=== PATIENT | male | born 1955 | race Caucasian/White ===

== ENCOUNTER → 2016-08-02 12:25 | Outpatient (CLI) | payer MEDICARE ==
[2011-10-31 09:04] VITALS: BMI 21.4
== END | disposition home or self-care (01) ==
LOC: D.LABREF 12:25
DX: L89.891 Pressure ulcer of other site, stage 1 (principal)

== ENCOUNTER → 2017-10-04 14:58 | Outpatient (CLI) | payer MEDICARE ==
[2011-10-31 09:04] VITALS: BMI 21.4
== END | disposition home or self-care (01) ==
LOC: D.CT 14:58
DX: R10.9 Unspecified abdominal pain (principal)

== ENCOUNTER → 2018-02-12 08:26 | Outpatient (CLI) | payer MEDICARE ==
[2011-10-31 09:04] VITALS: BMI 21.4
== END | disposition home or self-care (01) ==
LOC: D.US 01-30 13:00
DX: N18.4 Chronic kidney disease, stage 4 (severe) (principal); E11.9 Type 2 diabetes mellitus without complications; Z68.21 Body mass index [BMI] 21.0-21.9, adult

== ENCOUNTER 2018-02-19 17:33 | Emergency (ER) | payer MEDICARE ==
[~2018-02-19] VITALS: Ht 195.6 cm; Wt 80.9 kg
[2018-02-19 17:49] VITALS: Ht 195.6 cm; Wt 80.9 kg
[2018-02-19 20:16] VITALS: BP 172/94
== END 2018-02-19 19:41 | disposition home or self-care (01) ==
LOC: D.ER 17:33
DX: R33.9 Retention of urine, unspecified (principal); N13.9 Obstructive and reflux uropathy, unspecified; N28.9 Disorder of kidney and ureter, unspecified; E11.9 Type 2 diabetes mellitus without complications

== ENCOUNTER 2018-03-25 06:13 | Day surgery (SDC) | payer MEDICARE ==
[2018-03-24 08:24] LABS: ANION GAP 12.4 mmol/L (8-16); CALCIUM 8.5 mg/dL (8.5-10.1); CARBON DIOXIDE 25.2 mmol/L (21.0-32.0); CREATININE - SERUM 2.5 mg/dL (0.6-1.3); POTASSIUM - SERUM 4.6 mmol/L (3.5-5.1)
[2018-03-24 08:50] LABS: HEMATOCRIT 37.3 % (42.0-54.0); MCH 28.3 pg (26.0-34.0); MCHC 32.2 g/dL (31.0-37.0); RBC 4.24 10x6/uL (4.20-6.10); RDW 15.6 % (11.5-14.5); WBC 7.4 10x3/uL (4.8-10.8)
[~2018-03-25] VITALS: Ht 195.6 cm; Wt 79.4 kg
--- NOTE | ~2018-03-25 | OP ---
PATIENT NAME: JAKUB MIGUEL MEDICAL RECORD: [id number] :53 LOCATION:[facility] ADMISSION DATE: SURGEON: GIORGIO PARIKH MD DATE OF OPERATION: 03/25/2018 SURGEON: Giorgio Parikh MD ANESTHESIA: General anesthesia by Neelima Matt CRNA. DIAGNOSIS: Obstructive BPH causing urinary retention. PROCEDURES: Cystoscopy, implantation of UroLift devices times 4, insertion of Hein catheter. FINDINGS: Obstructive bilateral lateral lobes. Heavily trabeculated bladder with single ureteral orifices bilaterally. No bladder tumors. ESTIMATED BLOOD LOSS: None. CLINICAL HISTORY: This is a 63-year-old male, who is in urinary retention. Prior to going into retention, his IPSS score was 16 and his quality of life score was 3. He has been on finasteride and tamsulosin and a voiding trial was unsuccessful. He comes today to have a UroLift procedure performed. DESCRIPTION OF PROCEDURE: The patient was given induction of general anesthetic. He was placed in dorsal lithotomy position. He was prepped and draped. Cystoscopy was performed using the cystoscope. Findings are as outlined above. At about 1.5-2 cm distal to the bladder neck, we placed in the anterior lateral lobe of the prostate the UroLift implant on each side. We then repeated an implant on each side at the level of the verumontanum. The urethra was now wide open. At this point, the cystoscope was removed. A 16-Mongolian Hein catheter was inserted into the bladder and inflated with 10 cc of sterile water. It was put to bag drainage. The patient will come back to the office at the end of the week for a voiding trial. TRANSINT:[id number] Voice Confirmation ID: [id number] DOCUMENT ID: [id number] GIORGIO PARIKH MD at 1132 CC: [id number] DICTATION DATE: 03/25/18 1054 TANK CAR CLEANER: 03/25/18 1125 REG [place] [id number] [place] [id number]
[2018-03-25] MEDS ORDERED: REGLAN10 MG PO (06:22)
[2018-03-25] MEDS ORDERED: STRATTERA40 MG PO (06:23)
[2018-03-25] MEDS ORDERED: OMEPRAZOLE20 M1 PO (06:23)
[2018-03-25] MEDS ORDERED: ZOCOR40 MG PO (06:23)
[2018-03-25] MEDS ORDERED: BAYER CHEWABLE81 MG PO (06:24)
[2018-03-25] MEDS ORDERED: NEUPRO1 EACH TOPICAL (06:24)
[2018-03-25 06:25] VITALS: BP 138/81; Ht 195.6 cm; Wt 79.4 kg
== END 2018-03-25 12:25 | disposition home or self-care (01) ==
LOC: D.OPS 06:13
PROVIDERS: Anesthesiology
DX: N40.1 Benign prostatic hyperplasia with lower urinary tract symptoms (principal); N13.8 Other obstructive and reflux uropathy; R33.8 Other retention of urine; Z01.812 Encounter for preprocedural laboratory examination

== ENCOUNTER → 2018-04-18 13:26 | Outpatient (CLI) | payer MEDICARE ==
[2018-03-25 06:25] VITALS: BMI 20.8
[~2018-04-18 13:26] MED LIST: BAYER CHEWABLE81 MG PO; NEUPRO1 EACH TOPICAL; OMEPRAZOLE20 M1 PO; REGLAN10 MG PO; STRATTERA40 MG PO; ZOCOR40 MG PO
== END | disposition home or self-care (01) ==
LOC: D.LABREF 13:26
DX: R31.9 Hematuria, unspecified (principal); D72.829 Elevated white blood cell count, unspecified

== ENCOUNTER → 2018-05-13 17:47 | Outpatient (CLI) | payer MEDICARE ==
[2018-03-25 06:25] VITALS: BMI 20.8
== END | disposition home or self-care (01) ==
LOC: D.LABREF 17:47
DX: N39.0 Urinary tract infection, site not specified (principal)

== ENCOUNTER → 2018-06-11 18:18 | Outpatient (CLI) | payer MEDICARE ==
[2018-03-25 06:25] VITALS: BMI 20.8
== END | disposition home or self-care (01) ==
LOC: D.LABREF 18:18
DX: D72.829 Elevated white blood cell count, unspecified (principal); R31.9 Hematuria, unspecified

== ENCOUNTER → 2018-06-25 13:55 | Outpatient (CLI) | payer MEDICARE ==
[2018-03-25 06:25] VITALS: BMI 20.8
== END | disposition home or self-care (01) ==
LOC: D.LABREF 13:55
DX: D72.829 Elevated white blood cell count, unspecified (principal); R31.9 Hematuria, unspecified

== ENCOUNTER → 2018-07-23 22:37 | Outpatient (CLI) | payer MEDICARE ==
[2018-03-25 06:25] VITALS: BMI 20.8
== END | disposition home or self-care (01) ==
LOC: D.LABREF 22:37
PROVIDERS: ATTEND Urology
DX: R82.5 Elevated urine levels of drugs, medicaments and biological substances (principal)

== ENCOUNTER → 2018-08-20 16:02 | Outpatient (CLI) | payer MEDICARE ==
[2018-03-25 06:25] VITALS: BMI 20.8
== END | disposition home or self-care (01) ==
LOC: D.LABREF 16:02
PROVIDERS: ATTEND Urology
DX: D72.829 Elevated white blood cell count, unspecified (principal)